=== PATIENT | female | born 1965 | race Caucasian/White ===

== ENCOUNTER → 2018-10-30 | Outpatient (CLI) | payer BC | LOC: COL.RAD 09:42 | DX: R10.9 Unspecified abdominal pain (principal) | CPT/HCPCS: A9537 ==

== ENCOUNTER 2018-12-06 08:34 | Day surgery (SDC) | payer BC ==
[~2018-12-06] VITALS: Ht 170.2 cm; Wt 103.6 kg
[2018-12-06] VITALS (9 sets, daily range): BP systolic 138–159; BP diastolic 67–98; PULSE 80–92; TEMP 97.7–98.1
[2018-12-06] MEDS ORDERED: NEURONTIN300 MG/CAP PO (08:55)
[2018-12-06] MEDS ORDERED: FLONASEALLERGY NS (08:55)
[2018-12-06] MEDS ORDERED: ZYRTEC 10MG10 MG PO (08:55)
[2018-12-06] MEDS ORDERED: SINGULAIR 110 MG/TAB PO (08:56)
[2018-12-06] MEDS ORDERED: SYNTHROID0.125 MG/T PO (08:56)
[2018-12-06] MEDS ORDERED: ZOFRAN 4MG T4 MG/TAB PO (08:57)
[2018-12-06] MEDS ORDERED: NAPROSYN500 MG PO (08:57)
[2018-12-06] MEDS ORDERED: AMBIEN 5MG TABLE5 MG PO (08:58)
--- NOTE | 2018-12-06 12:35 | NUR ---
Patient arrives to [facility] [place] [address] via cart, accompanied by TRAINER Nida. She is alert and oriented. Monitoring applied - VSS and WNL on room air. Operative sites x4 are clean, dry, intact. Patient denies any nausea or pain. Offered and receives sprite and crackers to eat. Family is at the bedside. Call light in reach. Will continue to monitor.
--- NOTE | 2018-12-06 12:50 | NUR ---
VSS and WNL on room air. Operative sites remain clean, dry, intact. Denies any pain or nausea at this time. She is resting comfortably, chatting with sisters in room. Will continue to monitor.
--- NOTE | 2018-12-06 13:05 | NUR ---
VSS and WNL on room air. Denies any pain or nausea.
--- NOTE | 2018-12-06 13:20 | NUR ---
VSS and WNL on room air. Patient escorted to bathroom with standby assist. Voids large amount of clear, yellow urine. Returns to room. Will continue to monitor.
--- NOTE | 2018-12-06 13:35 | NUR ---
VSS and WNL on room air. Denies any pain, nausea, or need.
--- NOTE | 2018-12-06 13:40 | NUR ---
Patient has met discharge criteria. Waiting on ride to arrive.
--- NOTE | 2018-12-06 14:05 | NUR ---
VSS and WNL on room air. Patient resting comfortably in room. Denies any pain, nausea, or need.
--- NOTE | 2018-12-06 14:35 | NUR ---
Patient resting comfortably in room. Offered and receives a muffin and sprite.
--- NOTE | 2018-12-06 14:51 | NUR ---
Attempted to schedule a follow-up appointment for [address] Hua in his [place] clinic. Scheduling was not available - left message to contact patient to schedule. Patient and family aware of need for follow-up appointment in 2 weeks and to contact the clinic to schedule if they do not hear from them on Sunday.
--- NOTE | 2018-12-06 15:15 | NUR ---
Patient's family has returned to give her a ride home. Discharge instructions discussed, denies any questions, and verbalizes understanding. PIV removed with catheter intact and hemostasis achieved. Patient changing to clothing independently.
== END 2018-12-06 15:23 | disposition home or self-care (01) ==
LOC: SDCO 08:34
DX: K81.1 Chronic cholecystitis (principal); I10 Essential (primary) hypertension; J45.909 Unspecified asthma, uncomplicated; E03.9 Hypothyroidism, unspecified; F41.9 Anxiety disorder, unspecified; Z79.899 Other long term (current) drug therapy; G62.9 Polyneuropathy, unspecified
CPT/HCPCS: J1100; J1885; J2250; J2405; J2704; J3010; J7120; Q9967

== ENCOUNTER → 2021-07-06 | Outpatient (CLI) | payer OTHER ==
[~2021-07-06] MED LIST: AMBIEN 5MG TABLE5 MG PO; FLONASEALLERGY NS; NAPROSYN500 MG PO; NEURONTIN300 MG/CAP PO; SINGULAIR 110 MG/TAB PO; SYNTHROID0.125 MG/T PO; ZOFRAN 4MG T4 MG/TAB PO; ZYRTEC 10MG10 MG PO
== END ==
LOC: MHCPAIN 13:24
DX: M47.816 Spondylosis without myelopathy or radiculopathy, lumbar region (principal); M53.3 Sacrococcygeal disorders, not elsewhere classified; M54.16 Radiculopathy, lumbar region
CPT/HCPCS: G0463

== ENCOUNTER → 2021-07-11 | Outpatient (CLI) | payer OTHER | LOC: MHCPAIN 11:59 | DX: M47.817 Spondylosis without myelopathy or radiculopathy, lumbosacral region (principal); M54.16 Radiculopathy, lumbar region; M53.3 Sacrococcygeal disorders, not elsewhere classified | CPT/HCPCS: J0461; J1100; Q9967 ==

== ENCOUNTER → 2021-08-09 | Outpatient (CLI) | payer OTHER | LOC: MHCPAIN 08:45 | DX: M47.816 Spondylosis without myelopathy or radiculopathy, lumbar region (principal); M53.3 Sacrococcygeal disorders, not elsewhere classified; M54.6 Pain in thoracic spine | CPT/HCPCS: G0463 ==

== ENCOUNTER → 2021-08-22 | Outpatient (CLI) | payer OTHER | LOC: MHCPAIN 10:10 | DX: M47.817 Spondylosis without myelopathy or radiculopathy, lumbosacral region (principal); M54.16 Radiculopathy, lumbar region; M53.3 Sacrococcygeal disorders, not elsewhere classified | CPT/HCPCS: J1100; Q9967 ==

== ENCOUNTER → 2021-09-13 | Outpatient (CLI) | payer OTHER | LOC: MHCPAIN 09:17 | DX: M47.816 Spondylosis without myelopathy or radiculopathy, lumbar region (principal); M53.3 Sacrococcygeal disorders, not elsewhere classified; M54.16 Radiculopathy, lumbar region | CPT/HCPCS: G0463 ==

== ENCOUNTER → 2021-09-29 | Outpatient (CLI) | payer OTHER | LOC: MHCPAIN 13:46 | DX: M47.817 Spondylosis without myelopathy or radiculopathy, lumbosacral region (principal); M53.3 Sacrococcygeal disorders, not elsewhere classified; M54.16 Radiculopathy, lumbar region | CPT/HCPCS: J1100; Q9967 ==

== ENCOUNTER → 2021-10-24 | Outpatient (CLI) | payer OTHER | LOC: MHCPAIN 15:42 | DX: M47.896 Other spondylosis, lumbar region (principal); M54.16 Radiculopathy, lumbar region; M53.3 Sacrococcygeal disorders, not elsewhere classified | CPT/HCPCS: G0463 ==

== ENCOUNTER → 2023-08-22 | Outpatient (CLI) | payer OTHER | LOC: COL.RAD 12:29 | DX: M25.552 Pain in left hip (principal) ==

== ENCOUNTER → 2023-08-22 | Outpatient (CLI) | payer OTHER | LOC: MHCPAIN 10:49 | DX: M25.552 Pain in left hip (principal); M54.50 Low back pain, unspecified; M47.896 Other spondylosis, lumbar region | CPT/HCPCS: G0463 ==

== ENCOUNTER → 2023-09-04 | Outpatient (CLI) | payer OTHER | LOC: MHCPAIN 10:22 | DX: M54.50 Low back pain, unspecified (principal); M25.552 Pain in left hip; M51.26 Other intervertebral disc displacement, lumbar region; M47.816 Spondylosis without myelopathy or radiculopathy, lumbar region; M48.061 Spinal stenosis, lumbar region without neurogenic claudication | CPT/HCPCS: G0463 ==

== ENCOUNTER → 2023-12-18 | Outpatient (CLI) | payer OTHER | LOC: MHCPAIN 14:32 | DX: M48.061 Spinal stenosis, lumbar region without neurogenic claudication (principal); M47.816 Spondylosis without myelopathy or radiculopathy, lumbar region | CPT/HCPCS: G0463 ==